=== PATIENT | female | born 1970 | race African-American/Black ===

== ENCOUNTER → 2018-03-06 | Outpatient (CLI) | payer BC, MEDICARE ==
--- NOTE | 2018-03-07 12:50 | RADIOLOGY REPORT (SQ) ---
EXAM DESCRIPTION: MRI HEAD COMBO COMPLETED DATE/TIME: 03/06/2018 11:59 am REASON FOR STUDY: MULTIPLE SCLEROSIS G35 MULTIPLE SCLEROSIS COMPARISON: None. TECHNIQUE: Multiplanar imaging includes noncontrasted T1, T2, FLAIR, diffusion with ADC map and post gadolinium contrast T1 sequences. Images stored on PACS. CONTRAST TYPE AND DOSE: 20 mL Multihance. RENAL FUNCTION: GFR > 60. LIMITATIONS: None. FINDINGS: ANATOMY: No anomalies. Normal vascular flow voids. Pituitary fossa normal. CSF SPACES: Normal in size and contour. No hemorrhage. CEREBRUM: Approximately 10- 12 foci of abnormal high signal on FLAIR sequence in the white matter, s everal lesions oriented perpendicular to the lateral ventricles. None of the lesions enhance. Large st lesion is about 1 cm left internal capsule. POSTERIOR FOSSA: No signal alteration. No hemorrhage. No edema, masses, or mass effect. Internal kristel tory canals, cerebellopontine angles, mastoids normal. No enhancing lesions. No abnormal enhancement post contrast. DIFFUSION IMAGING: Negative for acute or subacute infarction. ORBITS: No masses. Globes normal. PARANASAL SINUSES: No fluid levels. Mucosa normal. OTHER: No other significant finding. IMPRESSION: In active demyelinating disease consistent with clinical history of MS. No evidence of active demyelination. EVIDENCE OF ACUTE STROKE: NO. TECHNICAL DOCUMENTATION: JOB ID: [id number] [employer]- All Rights Reserved Reading location - IP/workstation name: [email or web address]
--- NOTE | 2018-03-07 14:41 | RADIOLOGY REPORT (SQ) ---
EXAM DESCRIPTION: MRI CERVICAL SPINE COMBO COMPLETED DATE/TIME: 03/06/2018 11:59 am REASON FOR STUDY: MULTIPLE SCLEROSIS G35 MULTIPLE SCLEROSIS COMPARISON: None. TECHNIQUE: Sagittal and Axial imaging includes T1, T2, STIR and gradient echo sequences. T1 post kg olinium sequences. CONTRAST TYPE AND DOSE: See separate report of the same date. RENAL FUNCTION: See separate report of the same date. LIMITATIONS: Patient motion. FINDINGS: ALIGNMENT: Normal. VERTEBRAE: Intact. BONE MARROW: Normal. No marrow replacement or reactive changes. DISCS: Normal. No significant abnormal signal or loss of height. HARDWARE: None in the spine. CORD AND BASE OF BRAIN: Linear increased T2 signal in the cord at the level of T 2 at the edge of the [id number]. SOFT TISSUES: No soft tissue masses. C1-C2: No significant spinal stenosis. C2-C3: No significant spinal stenosis or exit foraminal stenosis. C3-C4: No significant spinal stenosis or exit foraminal stenosis. C4-C5: No significant spinal stenosis or exit foraminal stenosis. C5-C6: No significant spinal stenosis or exit foraminal stenosis. C6-C7: No significant spinal stenosis or exit foraminal stenosis. C7-T1: No significant spinal stenosis or exit foraminal stenosis. UPPER THORACIC: Incompletely imaged. No significant spinal stenosis or exit foraminal stenosis. ENHANCEMENT: No abnormal enhancement. OTHER: No other significant finding. IMPRESSION: No evidence of active demyelinating disease. Suspected small syrinx at the T2 level whi is incompletely evaluated. COMMENT: None. TECHNICAL DOCUMENTATION: JOB ID: [id number] [facility]- All Rights Reserved Reading location - IP/workstation name: [email or web address]
== END ==
LOC: RAD 10:13
PROVIDERS: ATTEND Specialist
DX: G35 Multiple sclerosis (principal)
CPT/HCPCS: 82565; 70553; 72156; A9577

== ENCOUNTER 2018-04-23 01:23 | Emergency (ER) | payer OTHER, MEDICARE, BC ==
[2018-04-23] MEDS ORDERED: KETOROLAC TROMETHAMINE 60 MG/2 ML SDV IM ONE (03:52)
--- NOTE | 2018-04-23 04:00 | ER Document Report ---
HPI - HPI Onset: Yesterday Pain Level: 3 Notes: 47-year-old female who presents complaining of left hip pain after a mechanical fall yesterday afternoon at 3 PM while at work. Patient reports that she did not seek treatment at this time however the pain has gotten worse over the night and has now settled into a deep aching in the left hip area. Patient is able to bear weight and ambulate without difficulty. Patient reports past medical history of multiple sclerosis. 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 HEAD: Atraumatic, normocephalic. EYES: Pupils equal round and reactive to light, extraocular movements intact, conjunctiva are normal. ENT: Nares patent, oropharynx clear without exudates. Moist mucous membranes. NECK: Normal range of motion, supple without lymphadenopathy LUNGS: Breath sounds clear to auscultation bilaterally and equal. No wheezes rales or rhonchi. HEART: Regular rate and rhythm without murmurs ABDOMEN: Soft, nontender, nondistended abdomen. No guarding, no rebound. No masses appreciated. Female : deferred Musculoskeletal: Normal range of motion, no pitting or edema. No cyanosis. Full range of motion to bilateral hips. No pain with palpation to spine. NEUROLOGICAL: Cranial nerves grossly intact. Normal speech, normal gait. Normal sensory, motor exams PSYCH: Normal mood, normal affect. SKIN: Warm, Dry, normal turgor, no rashes or lesions noted. - INFECTION CONTROL TRAVEL OUTSIDE OF THE [place] IN LAST 30 DAYS: No Course - Re-evaluation Re-evalutation: 47-year-old female presents after mechanical fall yesterday. Patient complaining of left hip pain. Patient's examination is unremarkable and patient has full range of motion to her left hip. Will x-ray left hip and give an injection of IM Toradol. Left hip x-ray unremarkable. Will send patient home with prescription for Robaxin and ibuprofen. Patient will be instructed to alternate ice and heat. Patient instructed to follow-up with her primary care provider in 1 week if her pain persists, return to the emergency department if her pain worsens. - Vital Signs Vital signs: Temp Pulse Resp BP Pulse Ox 98.1 F 70 18 141/91 H 100 04/23/18 01:30 04/23/18 01:30 04/23/18 01:30 04/23/18 01:30 04/23/18 01:30 Discharge - Discharge Clinical Impression: Hip pain, left Fall Qualifiers: Encounter type: initial encounter Qualified Code(s): W19.XXXA - Unspecified fall, initial encounter Condition: Stable Disposition: HOME, SELF-CARE Additional Instructions: Contusion Your injury has resulted in a contusion -- a crushing of the deep tissues. No injury to important structures was detected during the physician's exam. Contusions vary in the amount of pain they cause, and in the length of time required for healing. Typically, the area will become bruised, and will remain painful to touch for two or three weeks. However, most patients are back to working and playing within a few days. After the initial period of rest and cold-packs, your symptoms (together with the doctor's recommendations) will determine how rapidly you can get back to full activity. Usually this means "do what feels okay, but don't do things that hurt." If re-examination was recommended, it's important to follow up as instructed. Call the doctor or return any time if pain increases, if swelling becomes severe, if you develop numbness or weakness in an injured extremity, or if any other alarming symptoms occur. Your x-ray does not show any fracture. Please use ice alternating with heat to aid with the discomfort. It is likely that you have a contusion or a deep bruise or possibly a mildly strained muscle. I am prescribing you some muscle relaxers and I would also like you to take the 800 mg ibuprofen I am prescribing. Please follow-up with your primary care provider in the next 5-7 days for a follow-up if you are still in pain. Prescriptions: Ibuprofen 800 mg PO TID PRN #30 tablet PRN Reason: For Pain Methocarbamol [Robaxin 500 mg Tablet] 500 mg PO QID PRN #30 tablet PRN Reason: Muscle Spasms Forms: Return to Work, Treatment of Relative/Child
--- NOTE | 2018-04-23 04:34 | RADIOLOGY REPORT (SQ) ---
EXAM DESCRIPTION: XR HIP 2 OR MORE VIEWS CLINICAL HISTORY: 47 years Female, fall, lt hip pain COMPARISON: None. Findings: Tubal ligation clips.. Bones, joints, and soft tissues of the XR HIP 2 OR MORE VIEWS appear otherwise intact. IMPRESSION: No acute findings.
[2018-04-23] MEDS ORDERED: METHOCARBAMOL 750 MG TABLET PO ONE (06:05)
[2018-04-23 06:33] VITALS: BP 124/93
== END 2018-04-23 06:10 | disposition home or self-care (01) ==
LOC: ER 01:23
DX: M25.552 Pain in left hip (principal); W19.XXXA Unspecified fall, initial encounter; Y99.0 Civilian activity done for income or pay; G35 Multiple sclerosis
CPT/HCPCS: 99283; 96372; 73502; J1885; J3490

== ENCOUNTER 2018-06-03 20:56 | Emergency (ER) | payer BC, MEDICARE ==
[2018-06-03] MEDS ORDERED: ASPIRIN 81 MG TABLET, CHEWABLE PO ONE (21:44)
--- NOTE | 2018-06-03 22:02 | RADIOLOGY REPORT (SQ) ---
EXAM DESCRIPTION: CHEST SINGLE VIEW COMPLETED DATE/TIME: 06/03/2018 9:53 pm REASON FOR STUDY: cp COMPARISON: None. EXAM PARAMETERS: NUMBER OF VIEWS: One view. TECHNIQUE: Single frontal radiographic view of the chest acquired. RADIATION DOSE: NA LIMITATIONS: None. FINDINGS: LUNGS AND PLEURA: No opacities, masses or pneumothorax. No pleural effusion. MEDIASTINUM AND HILAR STRUCTURES: No masses. Contour normal. HEART AND VASCULAR STRUCTURES: Heart normal in size. Normal vasculature. BONES: No acute findings. HARDWARE: None in the chest. OTHER: No other significant finding. IMPRESSION: NO ACUTE RADIOGRAPHIC FINDING IN THE CHEST. TECHNICAL DOCUMENTATION: JOB ID: [id number] 2010 [employer]- All Rights Reserved Reading location - IP/workstation name: [email or web address]
[2018-06-03 22:12] LABS: ABSOLUTE LYMPHOCYTES (AUTO) 0.1 10^3/uL (0.5-4.7); ABSOLUTE MONOCYTES (AUTO) 0.5 10^3/uL (0.1-1.4); ABSOLUTE NEUT (AUTO) 1.8 10^3/uL (1.7-8.2); BASOPHILS % (AUTO) 0.3 % (0-2); EOSINOPHILS % (AUTO) 0.6 % (0-6); HEMATOCRIT 41.4 % (36.0-47.0); HEMOGLOBIN 13.8 g/dL (12.0-15.5); LYMPHOCYTES % (AUTO) 5.9 % (13-45); MEAN CORPUSCULAR HGB CONC 33.4 g/dL (32.0-36.0); MEAN CORPUSCULAR VOLUME 87 fl (80-97); MONOCYTES % (AUTO) 18.8 % (3-13); PLATELET COUNT 173 10^3/uL (150-450); RED BLOOD COUNT 4.76 10^6/uL (3.72-5.28); RED CELL DISTRIBUTION WIDTH 15.1 % (11.5-14.0); SEGMENTED NEUTROPHILS % (AUTO) 74.4 % (42-78); TOTAL CELLS COUNTED % (AUTO) 100 %; WHITE BLOOD COUNT 2.4 10^3/uL (4.0-10.5)
[2018-06-03] MEDS ORDERED: ONDANSETRON 4 MG TAB.RAPDIS PO ONE (22:25)
[2018-06-03] MEDS ORDERED: DICYCLOMINE HCL 20 MG TABLET PO ONE (22:26)
[2018-06-03 22:33] LABS: ALANINE AMINOTRANSFERASE 34 U/L (9-52); ALBUMIN 3.7 g/dL (3.5-5.0); ALKALINE PHOSPHATASE 95 U/L (38-126); ANION GAP 9 (5-19); ASPARTATE AMINO TRANSFERASE 29 U/L (14-36); BILIRUBIN,DIRECT 0.4 mg/dL (0.0-0.4); BILIRUBIN,TOTAL 0.5 mg/dL (0.2-1.3); BLOOD UREA NITROGEN 13 mg/dL (7-20); CALCIUM 9.1 mg/dL (8.4-10.2); CARBON DIOXIDE 26 mmol/L (22-30); CHLORIDE 108 mmol/L (98-107); CREATINE KINASE 218 U/L (30-135); GLUCOSE 97 mg/dL (75-110); POTASSIUM 4.1 mmol/L (3.6-5.0); SODIUM 142.7 mmol/L (137-145); TOTAL PROTEIN 6.6 g/dL (6.3-8.2)
[2018-06-03 22:44] LABS: CREATINE KINASE MB 1.26 ng/mL (<4.55)
[2018-06-03 22:45] LABS: TROPONIN I < 0.012 ng/mL
[2018-06-04] MEDS ORDERED: ONDANSETRON ODT 4 MG TAB (6 TAB/ER DISP) PO PRN (00:40)
--- NOTE | 2018-06-04 00:42 | ER Document Report ---
ED General - General Chief Complaint: Chest Pain > 30 Stated Complaint: CHEST PAIN Time Seen by Provider: 06/03/18 22:14 TRAVEL OUTSIDE OF THE [place] IN LAST 30 DAYS: No - HPI Patient complains to provider of: Chest pain Notes: Patient coming in for evaluation of chest pain. Patient states chest pain left sided started earlier this evening. Patient states chest pain occurred shortly after had episode nausea vomiting. Patient states at this time feeling much better. Patient states no recent travel no recent trauma. No fevers chills diarrhea. Patient states sick contact with family member in the room with recent symptoms of nausea vomiting diarrhea. - Related Data Allergies/Adverse Reactions: No Known Allergies Allergy (Verified 06/03/18 20:56) Past Medical History - Social History Smoking Status: Never Smoker Frequency of alcohol use: Occasional Drug Abuse: None Family History: Reviewed & Not Pertinent Patient has suicidal ideation: No Patient has homicidal ideation: No - Past Medical History Cardiac Medical History: Reports: Hx Hypertension Renal/ Medical History: Denies: Hx Peritoneal Dialysis Past Surgical History: Reports: Hx Orthopedic Surgery - RT ankle Review of Systems - Review of Systems Constitutional: No symptoms reported EENT: No symptoms reported Cardiovascular: Chest pain Respiratory: No symptoms reported Gastrointestinal: Nausea, Vomiting Genitourinary: No symptoms reported Female Genitourinary: No symptoms reported Musculoskeletal: No symptoms reported Skin: No symptoms reported Hematologic/Lymphatic: No symptoms reported Neurological/Psychological: No symptoms reported -: Yes All other systems reviewed and negative Physical Exam - Vital signs Vitals: Temp Pulse Resp BP Pulse Ox 98.0 F 78 16 150/99 H 98 06/03/18 21:10 06/03/18 21:10 06/03/18 21:10 06/03/18 21:10 06/03/18 21:10 Interpretation: Normal - General General appearance: Appears well, Alert - HEENT Head: Normocephalic, Atraumatic Eyes: Normal Pupils: PERRL - Respiratory Respiratory status: No respiratory distress Chest status: Nontender Breath sounds: Normal Chest palpation: Normal - Cardiovascular Rhythm: Regular Heart sounds: Normal auscultation Murmur: No - Abdominal Inspection: Normal Distension: No distension Bowel sounds: Normal Tenderness: Nontender Organomegaly: No organomegaly - Back Back: Normal, Nontender - Extremities General upper extremity: Normal inspection, Nontender, Normal color, Normal ROM , Normal temperature General lower extremity: Normal inspection, Nontender, Normal color, Normal ROM , Normal temperature, Normal weight bearing. No: Ronnie's sign - Neurological Neuro grossly intact: Yes Cognition: Normal Orientation: AAOx4 [place] Coma Scale Eye Opening: Spontaneous [place] Coma Scale Verbal: Oriented [place] Coma Scale Motor: Obeys Commands [place] Coma Scale Total: 15 Speech: Normal Motor strength normal: LUE, RUE, LLE, RLE Sensory: Normal - Psychological Associated symptoms: Normal affect, Normal mood - Skin Skin Temperature: Warm Skin Moisture: Dry Skin Color: Normal Course - Re-evaluation Re-evalutation: 06/04/18 02:55 The patient has atypical chest pain as the patient's chest pain is not suggestive of pulmonary embolus, cardiac ischemia, aortic dissection, or other serious etiology. Given the extremely low risk of these diagnoses further testing and evaluation for these possibilities does not appear to be indicated at this time. The patient has been instructed to return if the symptoms worsen or change in any way. - Vital Signs Vital signs: Temp Pulse Resp BP Pulse Ox 98.6 F 78 12 106/67 100 06/04/18 00:01 06/03/18 21:10 06/04/18 00:01 06/04/18 00:01 06/04/18 00:01 - Laboratory Result Diagrams: 06/03/18 21:55 06/03/18 21:55 Laboratory results interpreted by me: 06/03/18 06/03/18 21:55 21:55 WBC 2.4 L RDW 15.1 H Lymphocytes % 5.9 L Monocytes % 18.8 H Absolute Lymphocytes 0.1 L Chloride 108 H Creatine Kinase 218 H Discharge - Discharge Clinical Impression: Chest pain, unspecified Qualifiers: Chest pain type: unspecified Qualified Code(s): R07.9 - Chest pain, unspecified Nausea & vomiting Qualifiers: Vomiting type: unspecified Vomiting Intractability: unspecified Qualified Code( s): R11.2 - Nausea with vomiting, unspecified Condition: Good Disposition: HOME, SELF-CARE Instructions: Chest Wall Pain ([facility]), Chest Pain of Unclear Cause ([facility]), Vomiting ([facility]) Additional Instructions: At this time your laboratory studies chest x-ray EKG does not show any concerning etiology for your chest pain. Highly recommend taking Tylenol Motrin for your pain. Take Zofran as provided for any nausea that she may have. I would recommend a bland diet for the next few days. Return to ER for any other concerns Prescriptions: Ondansetron [Zofran Odt] 4 mg PO Q6 PRN #30 tab.rapdis PRN Reason: For Nausea/Vomiting Forms: Return to Work
[2018-06-04 00:45] VITALS: BP 106/67
--- NOTE | 2018-06-04 07:17 | EKG REPORT ---
SEVERITY:- NORMAL ECG - SINUS RHYTHM : Confirmed by: Luis Eduardo Byrnes MD 04-Jun-2018 07:17:37
== END 2018-06-04 00:30 | disposition home or self-care (01) ==
LOC: ER 20:56
DX: R07.9 Chest pain, unspecified (principal); R11.2 Nausea with vomiting, unspecified; I10 Essential (primary) hypertension
CPT/HCPCS: 93005; 99285; 36415; 82553; 82550; 83690; 85025; 80053; 84484; 71045; 93010; J3490; S0119

== ENCOUNTER 2018-07-06 21:25 | Emergency (ER) | payer OTHER, MEDICARE, BC ==
--- NOTE | 2018-07-06 22:41 | RADIOLOGY REPORT (SQ) ---
EXAM DESCRIPTION: ANKLE LEFT COMPLETE COMPLETED DATE/TIME: 07/06/2018 10:09 pm REASON FOR STUDY: Pain s/p injury after tripping. COMPARISON: None. NUMBER OF VIEWS: Three views. TECHNIQUE: AP, lateral, and oblique radiographic images acquired of the left ankle. LIMITATIONS: None. FINDINGS: MINERALIZATION: Normal. BONES: Bimalleolar fracture with a nondisplaced transverse fracture of the medial malleolar and an ob lique nondisplaced fracture of the distal fibula. Cannot exclude a minimal nondisplaced posterior ma lleolar fracture. JOINTS: No effusions. SOFT TISSUES: No soft tissue swelling. No foreign body. OTHER: No other significant finding. IMPRESSION: Fractures. TECHNICAL DOCUMENTATION: JOB ID: [id number] [employer]- All Rights Reserved Reading location - IP/workstation name: [email or web address]
[2018-07-06] MEDS ORDERED: ACETAMINOPHEN 325 MG TABLET ONE (23:33)
[2018-07-06] MEDS ORDERED: OXYCODONE-ACETAMINOPHEN 5-325 MG TABLET PO ONE (23:42)
--- NOTE | 2018-07-06 23:42 | ER Document Report ---
ED Extremity Problem, Lower - General Chief Complaint: Ankle Injury Stated Complaint: FALL Time Seen by Provider: 07/06/18 23:41 TRAVEL OUTSIDE OF THE [place] IN LAST 30 DAYS: No - HPI Patient complains to provider of: Other - Pain in the left lower extremity, this 47-year-old female presented for pain in the ankle after slipping and falling while walking on the ground, she had immediate pain in the ankle thereafter was unable to ambulate. Denies any trauma elsewhere no loss of consciousness no injury to the head. She denies pain in the back does complain of swelling in the ankle has not taken anything since it started. Has had similar pain in the past and the other ankle as she did break it. - Related Data Allergies/Adverse Reactions: No Known Allergies Allergy (Verified 06/03/18 20:56) Past Medical History - General Information source: Patient - Social History Smoking Status: Never Smoker Cigarette use (# per day): No Chew tobacco use (# tins/day): No Family History: Reviewed & Not Pertinent - Past Medical History Cardiac Medical History: Reports: Hx Hypertension Renal/ Medical History: Denies: Hx Peritoneal Dialysis Past Surgical History: Reports: Hx Orthopedic Surgery - RT ankle Review of Systems - Review of Systems -: Yes All other systems reviewed and negative Physical Exam - Vital signs Interpretation: Normal - General General appearance: Appears well In distress: None - HEENT Head: Normocephalic Eyes: Normal Conjunctiva: Normal - Respiratory Respiratory status: No respiratory distress Chest status: Nontender Breath sounds: Normal - Cardiovascular Rhythm: Regular Heart sounds: Normal auscultation Murmur: No - Abdominal Inspection: Normal - Back Back: Normal - Extremities General upper extremity: Normal inspection General lower extremity: Normal inspection Ankle: Other - The left ankle is markedly swollen, there is swelling over the medial and lateral malleoli this - Neurological Neuro grossly intact: Yes Cognition: Normal Orientation: AAOx4 - Skin Skin Temperature: Warm Skin Moisture: Dry Course - Re-evaluation Re-evalutation: 07/07/18 05:03 47-year-old female presents for evaluation of pain and swelling in the left lower extremity after a fall. No other injuries identified. This patient has marked swelling over the medial and lateral malleolus, x-rays were obtained through triage, x-rays demonstrate that this patient has a bimalleolar fracture involving the tibia and fibula. Given this fracture as is will plan for splint application and follow-up in orthopedics clinic. 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 Splint applied, patient will be followed up in clinic referred to Dr. RICHARDSON for reevaluation and further evaluation with surgical management likely. She agrees at this time with current course, have given prescription for narcotic pain medication. Patient had difficulty ambulating, her and daughter agree to help her. Discharge - Discharge Clinical Impression: Broken leg, Fall Condition: Good Disposition: HOME, SELF-CARE Instructions: Fractured Ankle (Bimalleolar) ([facility]), Oral Narcotic Medication ( [facility]) Additional Instructions: You were seen today in the emergency department for broken ankle, he had a splint applied. He should follow-up with the orthopedic surgeon today. Do not put any weight on your leg. Use the pain medication only as needed. Prescriptions: Oxycodone HCl/Acetaminophen [Percocet 5-325 mg Tablet] 1 - 2 tab PO Q4H PRN #25 tablet PRN Reason: Forms: Special Work Note, Treatment of Relative/Child Referrals: SNEHAL HOLLY MD [ACTIVE STAFF] - Follow up as needed
[2018-07-07] MEDS ORDERED: HYDROCODONE/ACETAMINOPHEN 5-325 MG (6 TAB/ER DISP) PO PRN (01:01)
[2018-07-07 05:03] VITALS: BP 141/91
== END 2018-07-07 01:42 | disposition home or self-care (01) ==
LOC: ER 21:25
PROC: 2W3RX1Z Immobilization of Left Lower Leg using Splint (ICD-10-PCS; principal; 2018-07-06)
DX: S82.52XA Displaced fracture of medial malleolus of left tibia, initial encounter for closed fracture (principal); S82.62XA Displaced fracture of lateral malleolus of left fibula, initial encounter for closed fracture; M79.605 Pain in left leg; W01.0XXA Fall on same level from slipping, tripping and stumbling without subsequent striking against object, initial encounter; I10 Essential (primary) hypertension
CPT/HCPCS: 99283

== ENCOUNTER 2019-03-30 15:12 | Emergency (ER) | payer BC, MEDICARE ==
--- NOTE | 2019-03-30 16:49 | ER Document Report ---
ED Medical Screen (RME) - General Chief Complaint: Near Syncope Stated Complaint: DIZZINESS Time Seen by Provider: 03/30/19 16:40 Mode of Arrival: Ambulatory Information source: Patient TRAVEL OUTSIDE OF THE [place] IN LAST 30 DAYS: No - HPI Patient complains to provider of: DIZZINESS Notes: 03/30/19 16:46 Patient here with complaints of near syncope. The patient is a sitter here at the hospital. She has a history of multiple sclerosis. She states that she woke up this morning not feeling well. When she was walking into work, she felt like she was going to pass out. She had to lean up against a wall. This resolved. There was no actual syncope. No chest pain or shortness of breath. She states that she feels fine now. No fever. No nausea, vomiting, diarrhea. No unilateral numbness, tingling, weakness. No other complaints. Exam Nontoxic-appearing, no distress. Lungs clear throughout. Heart sounds normal. Non-focal neurological exam, cranial nerves II through XII grossly intact. Plan CBC, CMP, urine, Trope, EKG, chest x-ray. An initial examination was made on the patient as part of the triage process, and it was determined a more comprehensive evaluation was necessary. Initial labs were ordered and patient was transferred to another provider in the ED who assumed care and finished evaluation and plan. - Related Data Allergies/Adverse Reactions: No Known Allergies Allergy (Verified 06/03/18 20:56) Past Medical History - Past Medical History Cardiac Medical History: Reports: Hx Hypercholesterolemia, Hx Hypertension Renal/ Medical History: Denies: Hx Peritoneal Dialysis Past Surgical History: Reports: Hx Orthopedic Surgery - RT ankle Physical Exam - Vital signs Vitals: Temp Pulse Resp BP Pulse Ox 98.2 F 89 20 126/75 H 98 03/30/19 15:35 03/30/19 15:35 03/30/19 15:35 03/30/19 15:35 03/30/19 15:35 Course - Vital Signs Vital signs: Temp Pulse Resp BP Pulse Ox 98.2 F 89 20 126/75 H 98 03/30/19 15:35 03/30/19 15:35 03/30/19 15:35 03/30/19 15:35 03/30/19 15:35
--- NOTE | 2019-03-30 17:08 | RADIOLOGY REPORT (SQ) ---
EXAM DESCRIPTION: CHEST 2 VIEWS COMPLETED DATE/TIME: 03/30/2019 4:59 pm REASON FOR STUDY: DIZZINESS COMPARISON: 2018 TECHNIQUE: Frontal and lateral radiographic views of the chest acquired. NUMBER OF VIEWS: Two view. LIMITATIONS: None. FINDINGS: LUNGS AND PLEURA: No opacities, masses or pneumothorax. No pleural effusion. MEDIASTINUM AND HILAR STRUCTURES: No masses or contour abnormalities. HEART AND VASCULAR STRUCTURES: Heart normal size. No evidence for failure. BONES: No acute findings. HARDWARE: None in the chest. OTHER: No other significant finding. IMPRESSION: NO SIGNIFICANT RADIOGRAPHIC FINDING IN THE CHEST. TECHNICAL DOCUMENTATION: JOB ID: [id number] [employer]- All Rights Reserved Reading location - IP/workstation name: [email or web address]
[2019-03-30 17:26] LABS: ABSOLUTE LYMPHOCYTES (AUTO) 0.1 10^3/uL (0.5-4.7); ABSOLUTE MONOCYTES (AUTO) 0.4 10^3/uL (0.1-1.4); ABSOLUTE NEUT (AUTO) 1.8 10^3/uL (1.7-8.2); BASOPHILS % (AUTO) 0.5 % (0-2); EOSINOPHILS % (AUTO) 0.6 % (0-6); HEMATOCRIT 44.8 % (36.0-47.0); LYMPHOCYTES % (AUTO) 5.3 % (13-45); MEAN CORPUSCULAR HEMOGLOBIN 28.7 pg (27.0-33.4); MEAN CORPUSCULAR HGB CONC 33.4 g/dL (32.0-36.0); MEAN CORPUSCULAR VOLUME 86 fl (80-97); MONOCYTES % (AUTO) 17.4 % (3-13); PLATELET COUNT 205 10^3/uL (150-450); RED CELL DISTRIBUTION WIDTH 13.8 % (11.5-14.0); SEGMENTED NEUTROPHILS % (AUTO) 76.2 % (42-78); TOTAL CELLS COUNTED % (AUTO) 100 %; WHITE BLOOD COUNT 2.4 10^3/uL (4.0-10.5)
[2019-03-30 17:48] LABS: APPEARANCE,URINE CLOUDY; BILIRUBIN,URINE NEGATIVE (NEGATIVE); GLUCOSE, URINE NEGATIVE (NEGATIVE); KETONES,URINE NEGATIVE (NEGATIVE); LEUKOCYTE ESTERASE,URINE TRACE (NEGATIVE); NITRITE,URINE POSITIVE (NEGATIVE); PROTEIN,URINE NEGATIVE (NEGATIVE); URINE SPECIFIC GRAVITY 1.021
[2019-03-30 17:50] LABS: COLOR,URINE DARK YELLOW
[2019-03-30 18:00] LABS: ALANINE AMINOTRANSFERASE 55 U/L (9-52); ALBUMIN 4.1 g/dL (3.5-5.0); ALKALINE PHOSPHATASE 129 U/L (38-126); ANION GAP 10 (5-19); ASPARTATE AMINO TRANSFERASE 41 U/L (14-36); BILIRUBIN,DIRECT 0.3 mg/dL (0.0-0.4); BILIRUBIN,TOTAL 0.3 mg/dL (0.2-1.3); BLOOD UREA NITROGEN 12 mg/dL (7-20); CALCIUM 9.7 mg/dL (8.4-10.2); CARBON DIOXIDE 28 mmol/L (22-30); CHLORIDE 105 mmol/L (98-107); POTASSIUM 4.6 mmol/L (3.6-5.0); TOTAL PROTEIN 7.4 g/dL (6.3-8.2)
[2019-03-30 18:06] LABS: GLUCOSE 69 mg/dL (75-110)
--- NOTE | 2019-03-30 19:29 | ER Document Report ---
ED General - General Chief Complaint: Near Syncope Stated Complaint: DIZZINESS Time Seen by Provider: 03/30/19 16:40 Primary Care Provider: DA DUMONT FNP [Primary Care Provider] - Follow up in 3-5 days Mode of Arrival: Ambulatory Notes: Patient is a 48-year-old female that presents to the emergency department for chief complaint of lightheadedness. Patient states that she was walking into work, and started feeling lightheaded, and almost passed out, but did not lose consciousness. She said she is feeling much better now, she denies having any associated chest pain, shortness of breath, headaches, nausea, vomiting. She denies prior history of having syncopal episodes, but she states that she thinks she has not eaten as much as she usually does in the day, she does have MS, is worried maybe she is having a flare, but she denies having any spasticity, numbness, tingling or weakness. Past Medical History: Hypertension, multiple sclerosis Past Surgical History: Ankle surgery Social History: Denies tobacco, alcohol or drug use. Family History: Reviewed and noncontributory for presenting illness Allergies: Reviewed, see documented allergy list. REVIEW OF SYSTEMS: Other than noted above, the 12 point review of systems was reviewed with the patient and were negative, all pertinent findings are included in the HPI. PHYSICAL EXAMINATION: Vital signs reviewed, nursing noted reviewed. GENERAL: Well-appearing, well-nourished and in no acute distress. HEAD: Atraumatic, normocephalic. EYES: Eyes appear normal, extraocular movements intact, sclera anicteric, c onjunctiva are normal. ENT: nares patent, oropharynx clear without exudates. Moist mucous membranes. NECK: Normal range of motion, supple without lymphadenopathy LUNGS: Breath sounds clear to auscultation bilaterally and equal. No wheezes rales or rhonchi. HEART: Regular rate and rhythm without murmurs ABDOMEN: Soft, nontender, normoactive bowel sounds. No rebound, guarding, or rigidity. No masses appreciated. EXTREMITIES: Nontender, good range of motion, no pitting or edema. NEUROLOGICAL: No focal neurological deficits. Moves all extremities spontaneously Motor and sensory grossly intact on exam. PSYCH: Normal mood, normal affect. SKIN: Warm, Dry, normal turgor, no rashes or lesions noted on exposed skin TRAVEL OUTSIDE OF THE [place] IN LAST 30 DAYS: No - Related Data Allergies/Adverse Reactions: No Known Allergies Allergy (Verified 06/03/18 20:56) Past Medical History - General Information source: Patient - Social History Smoking Status: Never Smoker Frequency of alcohol use: None Drug Abuse: None Family History: Reviewed & Not Pertinent Patient has suicidal ideation: No Patient has homicidal ideation: No - Past Medical History Cardiac Medical History: Reports: Hx Hypercholesterolemia, Hx Hypertension Renal/ Medical History: Denies: Hx Peritoneal Dialysis Past Surgical History: Reports: Hx Orthopedic Surgery - RT ankle Physical Exam - Vital signs Vitals: Temp Pulse Resp BP Pulse Ox 98.2 F 89 20 126/75 H 98 03/30/19 15:35 03/30/19 15:35 03/30/19 15:35 03/30/19 15:35 03/30/19 15:35 Course - Re-evaluation Re-evalutation: Patient seen and examined vital signs reviewed. Laboratory data and/or imaging were ordered as appropriate for the patient's presenting symptoms and complaint, with consideration of any critical or life threatening conditions that may be associated with their obtained history and exam as noted above. Patient was treated with first dose of po Keflex Results were reviewed when available and demonstrated UA concerning for UTI, she was noted to have mild leukopenia and this appears to be chronic. Believe the patient's cause of her syncope is likely mild dehydration, she is been having some urinary frequency, and likely caused from urinary tract infection as she is nitrite positive. The patient was re-evaluated and was stable Evaluation was most consistent with near syncope, uti, given rx for keflex and advised hydrating herself adequately at home Results were discussed with the patient at this point, after careful consideration I feel that that patient can be discharged from the emergency department, the patient was educated treatments and reasons to return to the em ergency department based on their presumed diagnosis as noted above, they were advised to followup with a primary care physician in 2-3 days. Patient was agreeable to plan of care. *Note is created using voice recognition software and may contain spelling, syntax or grammatical errors. Laboratory 03/30/19 03/30/19 03/30/19 17:13 17:13 17:13 WBC 2.4 L RBC 5.20 Hgb 15.0 Hct 44.8 MCV 86 MCH 28.7 MCHC 33.4 RDW 13.8 Plt Count 205 Seg Neutrophils % 76.2 Lymphocytes % 5.3 L Monocytes % 17.4 H Eosinophils % 0.6 Basophils % 0.5 Absolute Neutrophils 1.8 Absolute Lymphocytes 0.1 L Absolute Monocytes 0.4 Absolute Eosinophils 0.0 Absolute Basophils 0.0 Sodium 143.0 Potassium 4.6 Chloride 105 Carbon Dioxide 28 Anion Gap 10 BUN 12 Creatinine 0.62 Est GFR ( Amer) > 60 Est GFR (Non-Af Amer) > 60 Glucose 69 L Calcium 9.7 Total Bilirubin 0.3 Direct Bilirubin 0.3 Neonat Total Bilirubin Not Reportable Neonat Direct Bilirubin Not Reportable Neonat Indirect Bili Not Reportable AST 41 H ALT 55 H Alkaline Phosphatase 129 H Troponin I < 0.012 Total Protein 7.4 Albumin 4.1 Urine Color Urine Appearance Urine pH Ur Specific [place] Urine Protein Urine Glucose (UA) Urine Ketones Urine Blood Urine Nitrite Urine Bilirubin Urine Urobilinogen Ur Leukocyte Esterase Urine WBC (Auto) Urine RBC (Auto) Urine Bacteria (Auto) Squamous Epi Cells Auto Urine Mucus (Auto) Urine Ascorbic Acid Urine HCG, Qual Monotest 03/30/19 03/30/19 17:13 17:13 WBC RBC Hgb Hct MCV MCH MCHC RDW Plt Count Seg Neutrophils % Lymphocytes % Monocytes % Eosinophils % Basophils % Absolute Neutrophils Absolute Lymphocytes Absolute Monocytes Absolute Eosinophils Absolute Basophils Sodium Potassium Chloride Carbon Dioxide Anion Gap BUN Creatinine Est GFR ( Amer) Est GFR (Non-Af Amer) Glucose Calcium Total Bilirubin Direct Bilirubin Neonat Total Bilirubin Neonat Direct Bilirubin Neonat Indirect Bili AST ALT Alkaline Phosphatase Troponin I Total Protein Albumin Urine Color DARK YELLOW Urine Appearance CLOUDY Urine pH 5.0 Ur Specific [place] 1.021 Urine Protein NEGATIVE Urine Glucose (UA) NEGATIVE Urine Ketones NEGATIVE Urine Blood NEGATIVE Urine Nitrite POSITIVE H Urine Bilirubin NEGATIVE Urine Urobilinogen 2.0 H Ur Leukocyte Esterase TRACE H Urine WBC (Auto) 12 Urine RBC (Auto) 1 Urine Bacteria (Auto) 1+ Squamous Epi Cells Auto 1 Urine Mucus (Auto) MANY Urine Ascorbic Acid NEGATIVE Urine HCG, Qual NEGATIVE Monotest NEGATIVE Chest X-Ray 03/30/19 16:45 IMPRESSION: NO SIGNIFICANT RADIOGRAPHIC FINDING IN THE CHEST. - Vital Signs Vital signs: Temp Pulse Resp BP Pulse Ox 98.3 F 89 21 H 123/82 100 03/30/19 20:30 03/30/19 15:35 03/30/19 20:02 03/30/19 20:02 03/30/19 20:02 - Laboratory Result Diagrams: 03/30/19 17:13 03/30/19 17:13 Laboratory results interpreted by me: 03/30/19 03/30/19 03/30/19 17:13 17:13 17:13 WBC 2.4 L Lymphocytes % 5.3 L Monocytes % 17.4 H Absolute Lymphocytes 0.1 L Glucose 69 L AST 41 H ALT 55 H Alkaline Phosphatase 129 H Urine Nitrite POSITIVE H Urine Urobilinogen 2.0 H Ur Leukocyte Esterase TRACE H Discharge - Discharge Clinical Impression: Near syncope UTI (urinary tract infection) Qualifiers: Urinary tract infection type: site unspecified Hematuria presence: without hematuria Qualified Code(s): N39.0 - Urinary tract infection, site not specified Condition: Stable Disposition: HOME, SELF-CARE Instructions: Urinary Tract Infection ([facility]) Prescriptions: RX: Cephalexin Monohydrate [Keflex 500 mg Capsule] 500 mg PO BID 5 Days #10 capsule Fluconazole [Diflucan] 150 mg PO ONCE PRN #1 tablet PRN Reason: yeast infection Forms: Return to Work Referrals: DA DUMONT FNP [Primary Care Provider] - Follow up in 3-5 days
[2019-03-30 20:25] VITALS: BP 123/82
[2019-03-30] MEDS ORDERED: CEPHALEXIN 500 MG CAPSULE PO ONE (20:27)
--- NOTE | 2019-03-30 23:13 | EKG REPORT ---
SEVERITY:- NORMAL ECG - SINUS RHYTHM : Confirmed by: Iliana Hair 30-Mar-2019 23:11:38
== END 2019-03-30 20:31 | disposition home or self-care (01) ==
LOC: ER 15:12
DX: N39.0 Urinary tract infection, site not specified (principal); R42 Dizziness and giddiness; I10 Essential (primary) hypertension; G35 Multiple sclerosis
CPT/HCPCS: 93005; 99284; 36415; 85025; 81025; 86308; 80053; 81001; 84484; 71046; 93010; A9270

== ENCOUNTER 2019-04-01 06:07 | Emergency (ER) | payer MEDICARE ==
[2019-04-01] MEDS ORDERED: NORMAL SALINE 1000 ML 1,000 ML IV ONE (06:20)
[2019-04-01] MEDS ORDERED: CEFTRIAXONE 1 GM/D5W RTU 1 GM/50 ML RTUPB IV ONE (06:20)
--- NOTE | 2019-04-01 06:49 | ER Document Report ---
ED General - General Stated Complaint: DIZZINESS Time Seen by Provider: 04/01/19 06:19 Primary Care Provider: DA DUMONT FNP [Primary Care Provider] - Follow up as needed Mode of Arrival: Medic Information source: Patient, Emergency Med Personnel, [facility] Records Notes: 54-year-old female with MS, trigeminal neuralgia, hypertension, hyperlipidemia presents with complaint of dizziness that started 2 days prior to arrival. Patient was seen 2 days ago and diagnosed with a urinary tract infection. She states shortly after that she developed the sensation of the room spinning. She states that she has had associated nausea, headache. Patient states that she has been unable to start her prescribed antibiotic or take any of her home medications due to the nausea and dizziness. Patient denies ear ringing, fever, ear pain, sore throat, chest pain, shortness of breath, abdominal pain, back pain, weakness, slurred speech, difficulty with ambulation. Patient states dizziness is worse with movement and relieved with sitting still. She denies prior similar symptoms. TRAVEL OUTSIDE OF THE [place] IN LAST 30 DAYS: No - HPI Onset: Just prior to arrival Onset/Duration: Gradual, Persistent Quality of pain: Achy Severity: Mild Associated symptoms: Headache, Nausea, Vomiting. denies: Body/muscle aches, Chest pain, Shortness of breath, Weakness Exacerbated by: Movement, Walking Relieved by: Remaining still Similar symptoms previously: No Recently seen / treated by doctor: No - Related Data Allergies/Adverse Reactions: No Known Allergies Allergy (Verified 06/03/18 20:56) Past Medical History - General Information source: Patient, [facility] Records - Social History Smoking Status: Never Smoker Frequency of alcohol use: None Drug Abuse: None Lives with: Family Family History: Reviewed & Not Pertinent Patient has suicidal ideation: No Patient has homicidal ideation: No - Past Medical History Cardiac Medical History: Reports: Hx Hypercholesterolemia, Hx Hypertension Renal/ Medical History: Denies: Hx Peritoneal Dialysis Past Surgical History: Reports: Hx Orthopedic Surgery - RT ankle Review of Systems - Review of Systems Notes: REVIEW OF SYSTEMS: CONSTITUTIONAL : Denies fever, chills, or sweats. Denies recent illness. Denies weight loss, recent hospitalizations. EENT: Denies visual changes, eye pain. Denies sore throat, oral lesions, difficulty swallowing. CARDIOVASCULAR: Denies chest pain. Denies palpitations. Denies lower extremity edema. RESPIRATORY: Denies cough. Denies shortness of breath, wheezing. GASTROINTESTINAL: Denies abdominal pain or distention. Denies diarrhea. Denies blood in vomitus, stools, or per rectum. Denies black, tarry stools. Denies constipation. GENITOURINARY: Denies difficulty urinating, painful urination, frequency, blood in urine, or vaginal discharge. MUSCULOSKELETAL: Denies back or neck pain or stiffness. Denies joint pain or swelling. SKIN: Denies rash, lesions or sores. HEMATOLOGIC : Denies easy bruising or bleeding. LYMPHATIC: Denies swollen glands. NEUROLOGICAL: Denies confusion or altered mental status. Denies loss of consciousness. Denies lightheadedness. Denies weakness or paralysis. Denies problems difficulty with ambulation, slurred speech. Denies sensory lo ss, numbness, or tingling. Denies seizures. PSYCHIATRIC: Denies anxiety or stress. Denies depression, suicidal ideation, or homicidal ideation. Denies visual or auditory hallucinations. Physical Exam - Vital signs Vitals: Pulse Ox 100 04/01/19 06:26 - Notes Notes: PHYSICAL EXAMINATION: GENERAL: Well-appearing, well-nourished and in no acute distress. HEAD: Atraumatic, normocephalic. EYES: Pupils equal round and reactive to light, extraocular movements intact, conjunctiva are normal. Left-sided horizontal nystagmus ENT: Nares patent, oropharynx clear without exudates. Moist mucous membranes. NECK: Normal range of motion, supple without lymphadenopathy LUNGS: Breath sounds clear to auscultation bilaterally and equal. No wheezes rales or rhonchi. HEART: Regular rate and rhythm without murmurs ABDOMEN: Soft, nontender, nondistended abdomen. No guarding, no rebound. No masses appreciated. Female : deferred Musculoskeletal: Normal range of motion, no pitting or edema. No cyanosis. NEUROLOGICAL: Cranial nerves grossly intact. Normal speech, normal gait. Normal sensory, motor exams PSYCH: Normal mood, normal affect. SKIN: Warm, Dry, normal turgor, no rashes or lesions noted. Course - Re-evaluation Re-evalutation: Laboratory 04/01/19 04/01/19 04/01/19 07:00 07:38 07:38 WBC 2.0 L RBC 4.76 Hgb 13.5 Hct 41.2 MCV 87 MCH 28.3 MCHC 32.6 RDW 14.2 H Plt Count 181 Seg Neutrophils % 77.0 Lymphocytes % 4.8 L Monocytes % 16.6 H Eosinophils % 0.8 Basophils % 0.8 Absolute Neutrophils 1.6 L Absolute Lymphocytes 0.1 L Absolute Monocytes 0.3 Absolute Eosinophils 0.0 Absolute Basophils 0.0 Platelet Comment ADEQUATE Poikilocytosis SLIGHT Anisocytosis SLIGHT Ovalocytes SLIGHT Sodium 139.4 Potassium 3.9 Chloride 105 Carbon Dioxide 27 Anion Gap 7 BUN 12 Creatinine 0.58 Est GFR ( Amer) > 60 Est GFR (Non-Af Amer) > 60 Glucose 115 H Calcium 9.0 Urine Color YELLOW Urine Appearance SLIGHTLY-CLOUDY Urine pH 6.0 Ur Specific [place] 1.023 Urine Protein NEGATIVE Urine Glucose (UA) NEGATIVE Urine Ketones NEGATIVE Urine Blood NEGATIVE Urine Nitrite NEGATIVE Urine Bilirubin NEGATIVE Urine Urobilinogen 2.0 H Ur Leukocyte Esterase TRACE H Urine WBC (Auto) 1 Urine RBC (Auto) 0 Urine Bacteria (Auto) TRACE Squamous Epi Cells Auto 2 Amorphous Sediment Auto TRACE Urine Mucus (Auto) RARE Urine Ascorbic Acid NEGATIVE 04/01/19 09:33 Presentation of vertigo that appears most consistent with a benign peripheral vertigo. Patient has no abnormal findings on exam. Normal cerebellar testing, steady even gait. Able to walk on heels and toes. Normal proprioception. Patient is not an elevated risk for a cerebellar infarction given age, absence of significant risk factors. Patient did have improvement of symptoms here in the emergency department with meclizine. Suspect likely acute vestibular neuritis. I do not believe neurologic imaging is indicated at this time based on physical examination and clinical history. Patient will be discharged with recommendations to return should their symptoms worsen or they develop new concerning symptoms. 04/01/19 13:32 - Vital Signs Vital signs: Temp Pulse Resp BP Pulse Ox 98 F 17 135/92 H 100 04/01/19 09:38 04/01/19 09:02 04/01/19 09:02 04/01/19 09:02 - Laboratory Result Diagrams: 04/01/19 07:38 04/01/19 07:38 Laboratory results interpreted by me: 04/01/19 04/01/19 04/01/19 07:00 07:38 07:38 WBC 2.0 L RDW 14.2 H Lymphocytes % 4.8 L Monocytes % 16.6 H Absolute Neutrophils 1.6 L Absolute Lymphocytes 0.1 L Glucose 115 H Urine Urobilinogen 2.0 H Ur Leukocyte Esterase TRACE H - Diagnostic Test Radiology reviewed: Image reviewed, Reports reviewed Discharge - Discharge Clinical Impression: Vertigo, Nausea Condition: Good Disposition: HOME, SELF-CARE Instructions: Antinausea Medication ([facility]), Meclizine ([facility]), Vertigo ([facility]) Additional Instructions: Follow up with your [id number] hours for further care or return to the ED IMMEDIATELY if symptoms worsen or you have any concerns. If you cannot afford to follow up with your primary care physician a list of low cost clinics have been provided at the end of your discharge papers as well. Most prescribed medications have multiple side effects. The safest thing to do is when filling your prescription speak to your pharmacist regarding possible interactions with your normal home medications and over the counter medications such as Ibuprofen, Tylenol, Benadryl. If you experience any symptoms that cause you discomfort or concern you should discontinue the medication immediately and return to the emergency room or call your primary care physician. Prescriptions: Meclizine HCl [Antivert 25 mg Tablet] 25 mg PO TID PRN #21 tablet PRN Reason: Ondansetron [Zofran Odt 4 mg Tablet] 1 - 2 tab PO Q4H PRN #15 tab.rapdis PRN Reason: For Nausea/Vomiting Forms: Elevated Blood Pressure Referrals: DA DUMONT FNP [Primary Care Provider] - Follow up as needed
[2019-04-01] MEDS ORDERED: MECLIZINE HCL 25 MG TABLET PO ONE (06:50)
[2019-04-01] MEDS ORDERED: METOCLOPRAMIDE HCL INJ/PF 10 MG/2 ML SDV IV ONE (06:50)
[2019-04-01] MEDS ORDERED: MECLIZINE HCL 12.5 MG TABLET PO ONE ×2 (06:50)
[2019-04-01] MEDS ORDERED: DIPHENHYDRAMINE HCL 50 MG/ML VIAL IV ONE (06:50)
[2019-04-01] MEDS ORDERED: DIAZEPAM INJ 10 MG/2 ML DISP.SYRIN IV ONE (06:50)
[2019-04-01 07:50] LABS: AMORPHOUS SEDIMENT,URINE TRACE /HPF; APPEARANCE,URINE SLIGHTLY-CLOUDY; BILIRUBIN,URINE NEGATIVE (NEGATIVE); COLOR,URINE YELLOW; GLUCOSE, URINE NEGATIVE (NEGATIVE); KETONES,URINE NEGATIVE (NEGATIVE); LEUKOCYTE ESTERASE,URINE TRACE (NEGATIVE); NITRITE,URINE NEGATIVE (NEGATIVE); PROTEIN,URINE NEGATIVE (NEGATIVE); URINE SPECIFIC GRAVITY 1.023
[2019-04-01 08:02] LABS: ABSOLUTE LYMPHOCYTES (AUTO) 0.1 10^3/uL (0.5-4.7); ABSOLUTE MONOCYTES (AUTO) 0.3 10^3/uL (0.1-1.4); ABSOLUTE NEUT (AUTO) 1.6 10^3/uL (1.7-8.2); BASOPHILS % (AUTO) 0.8 % (0-2); EOSINOPHILS % (AUTO) 0.8 % (0-6); HEMATOCRIT 41.2 % (36.0-47.0); HEMOGLOBIN 13.5 g/dL (12.0-15.5); LYMPHOCYTES % (AUTO) 4.8 % (13-45); MEAN CORPUSCULAR HEMOGLOBIN 28.3 pg (27.0-33.4); MEAN CORPUSCULAR HGB CONC 32.6 g/dL (32.0-36.0); MEAN CORPUSCULAR VOLUME 87 fl (80-97); MONOCYTES % (AUTO) 16.6 % (3-13); PLATELET COUNT 181 10^3/uL (150-450); RED BLOOD COUNT 4.76 10^6/uL (3.72-5.28); RED CELL DISTRIBUTION WIDTH 14.2 % (11.5-14.0); TOTAL CELLS COUNTED % (AUTO) 100 %
[2019-04-01 08:14] LABS: ANION GAP 7 (5-19); BLOOD UREA NITROGEN 12 mg/dL (7-20); CARBON DIOXIDE 27 mmol/L (22-30); CHLORIDE 105 mmol/L (98-107); GLUCOSE 115 mg/dL (75-110); POTASSIUM 3.9 mmol/L (3.6-5.0); SODIUM 139.4 mmol/L (137-145)
[2019-04-01 08:20] LABS: ANISOCYTOSIS SLIGHT; OVALOCYTES SLIGHT; PLATELET COMMENT ADEQUATE; POIKILOCYTOSIS SLIGHT
[2019-04-01 09:25] VITALS: BP 135/92
== END 2019-04-01 09:38 | disposition home or self-care (01) ==
LOC: ER 06:07
DX: R42 Dizziness and giddiness (principal); R11.0 Nausea; E78.00 Pure hypercholesterolemia, unspecified; I10 Essential (primary) hypertension
CPT/HCPCS: 99284; 96361; 96375; 96365; 36415; 87086; 85025; 80048; 81001; J3360; J1200; A9270; J2765; J7030; J0696

== ENCOUNTER 2019-09-24 14:52 | Observation (INO) | payer MEDICARE ==
--- NOTE | 2019-09-24 15:15 | ER Document Report ---
ED General - General Chief Complaint: Chest Pain Stated Complaint: CHEST PAIN Time Seen by Provider: 09/24/19 15:14 Primary Care Provider: DA DUMONT FNP [Primary Care Provider] - Follow up as needed TRAVEL OUTSIDE OF THE [place] IN LAST 30 DAYS: No - HPI Notes: Patient is a 48 yo female that presents to the emergency department for chief complaint of chest pain and dizziness. Patient has complained of dizziness that she describes as a room spinning sensation that occurs when she moves her head. She states her symptom is new and has occurred twice today. She states earlier the symptoms occurred and lasted for a few minutes before resolving and then returned this afternoon. Patient also states after the second episode of dizziness she started to have a chest pain. She describes it as a left-sided heaviness that radiates into her left neck. She reported associated nausea and diaphoresis. She denied any palpitations, chest pain or syncopal episodes. Patient states her chest pain lasted for 30 to 45 minutes and has since completely resolved. Currently she only states feeling dizzy with position changes. She does report some sinus congestion recently but denies any illness fevers or chills. Past Medical History: MS, hypertension, hyperlipidemia Past Surgical History: Reviewed in chart Social History: Denies drug alcohol and tobacco use Family History: Reviewed and noncontributory for presenting illness Allergies: Reviewed, see documented allergy list. REVIEW OF SYSTEMS: CONSTITUTIONAL : No fever No chills No diaphoresis No recent illness EENT: No vision changes No congestion No sore throat CARDIOVASCULAR: chest pain No palpitations RESPIRATORY: No shortness of breath No cough No difficulty breathing GASTROINTESTINAL: No abdominal pain nausea No vomiting No diarrhea GENITOURINARY: No dysuria No hematuria No difficulty urinating MUSCULOSKELETAL: No back pain No leg pain No arm pain SKIN: No rashes No lesions LYMPHATIC: No swollen, enlarged glands. NEUROLOGICAL: No lightheadedness No headache No weakness No paresthesias Dizziness PSYCHIATRIC: No anxiety No depression PHYSICAL EXAMINATION: Vital signs reviewed, nursing noted reviewed. GENERAL: Well-appearing, well-nourished and in no acute distress. HEAD: Atraumatic, normocephalic. EYES: fatigable horizontal nystagmus to the right, extraocular movements intact, sclera anicteric, conjunctiva are normal. ENT: nares patent, oropharynx clear without exudates. Moist mucous membranes. NECK: Normal range of motion, supple without lymphadenopathy LUNGS: Breath sounds clear to auscultation bilaterally and equal. No wheezes rales or rhonchi. HEART: Regular rate and rhythm without murmurs ABDOMEN: Soft, nontender, normoactive bowel sounds. No rebound, guarding, or rigidity. No masses appreciated. EXTREMITIES: Nontender, good range of motion, no pitting or edema. NEUROLOGICAL: No focal neurological deficits. Moves all extremities spontaneously Motor and sensory grossly intact on exam. PSYCH: Normal mood, normal affect. SKIN: Warm, Dry, normal turgor, no rashes or lesions noted on exposed skin - Related Data Allergies/Adverse Reactions: No Known Allergies Allergy (Verified 06/03/18 20:56) Past Medical History - Social History Smoking Status: Never Smoker Family History: Reviewed & Not Pertinent - Past Medical History Cardiac Medical History: Reports: Hx Hypercholesterolemia, Hx Hypertension Renal/ Medical History: Denies: Hx Peritoneal Dialysis Past Surgical History: Reports: Hx Orthopedic Surgery - RT ankle Physical Exam - Vital signs Vitals: Pulse Ox 99 09/24/19 14:53 Course - Re-evaluation Re-evalutation: 09/24/19 16:22 Vitals reviewed. Nursing notes reviewed. Patient is chest pain-free at presentation to the ER. She has received aspirin. Patient's EKG shows no acute STEMI. Her initial troponin is negative. She does have a heart score of 4. Patient's lab work today also shows a leukopenia which is chronic and unchanged on chart review. She has no acute pneumonia, pneumomediastinum, pneumothorax or other cardiopulmonary process on chest x-ray. Patient's complaint of dizziness is reproduced with position changes and she does have sinus congestion. Symptoms most consistent with BPPV. Patient had significant symptomatic improvement after receiving Valium. I do not clinically suspect a central cause of her vertiginous symptoms given that they are intermittent and improving with medications as well as her current sinus congestion. Patient will be admitted to the hospital for further cardiac evaluation. Care discussed with Pee Slaughter NP who accepts admission. Patient stable at time of admission Laboratory 09/24/19 09/24/19 09/24/19 15:09 15:09 15:09 WBC 2.4 L RBC 4.88 Hgb 14.0 Hct 42.5 MCV 87 MCH 28.7 MCHC 32.9 RDW 13.3 Plt Count 167 Lymph % (Auto) Not Reportable [place] % (Auto) Not Reportable Eos % (Auto) Not Reportable Baso % (Auto) Not Reportable Absolute Neuts (auto) Not Reportable Absolute Lymphs (auto) Not Reportable Absolute Monos (auto) Not Reportable Absolute Eos (auto) Not Reportable Absolute Basos (auto) Not Reportable Total Counted 100 Seg Neutrophils % Not Reportable Seg Neuts % (Manual) 83 H Lymphocytes % (Manual) 4 L Monocytes % (Manual) 12 Eosinophils % (Manual) 1 Basophils % (Manual) 0 Abs Neuts (Manual) 2.0 Abs Lymphs (Manual) 0.1 L Abs Monocytes (Manual) 0.3 Absolute Eos (Manual) 0.0 Abs Basophils (Manual) 0.0 Platelet Comment ADEQUATE Sodium 142.1 Potassium 4.1 Chloride 105 Carbon Dioxide 31 H Anion Gap 6 BUN 11 Creatinine 0.67 Est GFR ( Amer) > 60 Est GFR (MDRD) Non-Af > 60 Glucose 120 H Calcium 9.3 Total Bilirubin 0.3 Direct Bilirubin 0.1 Neonat Total Bilirubin Not Reportable Neonat Direct Bilirubin Not Reportable Neonat Indirect Bili Not Reportable AST 44 H ALT 53 Alkaline Phosphatase 146 H Creatine Kinase 117 CK-MB (CK-2) 1.13 Troponin I < 0.012 Total Protein 6.9 Albumin 3.9 Chest X-Ray 09/24/19 14:54 IMPRESSION: Low volume AP portable examination without acute abnormality of the lungs. No focal airspace opacity. - Vital Signs Vital signs: Temp Pulse Resp BP Pulse Ox 97.8 F 15 125/89 H 100 09/24/19 15:00 09/24/19 15:01 09/24/19 15:00 09/24/19 15:01 - Laboratory Result Diagrams: 09/24/19 15:09 09/24/19 15:09 Laboratory results interpreted by me: 09/24/19 09/24/19 15:09 15:09 WBC 2.4 L Seg Neuts % (Manual) 83 H Lymphocytes % (Manual) 4 L Abs Lymphs (Manual) 0.1 L Carbon Dioxide 31 H Glucose 120 H AST 44 H Alkaline Phosphatase 146 H - EKG Interpretation by Me Additional EKG results interpreted by me: 09/24/19 16:12 interpreted by myself: 1457: NSR, rate 73, normal axis, no STEMI Discharge - Discharge Clinical Impression: BPPV (benign paroxysmal positional vertigo) Qualifiers: Laterality: right Qualified Code(s): H81.11 - Benign paroxysmal vertigo, right ear Chest pain Qualifiers: Chest pain type: other chest pain Qualified Code(s): R07.89 - Other chest pain; R07.8 - Other chest pain Leukopenia Qualifiers: Leukopenia type: other Qualified Code(s): D72.818 - Other decreased white blood cell count Condition: Stable Disposition: ADMITTED OBSERVATION Admitting Provider: Pee Slaughter NP Unit Admitted: Telemetry Referrals: DA DUMONT FNP [Primary Care Provider] - Follow up as needed
[2019-09-24] MEDS ORDERED: DIAZEPAM 5 MG TABLET PO ONE (15:20)
[2019-09-24] MEDS ORDERED: NORMAL SALINE 1000 ML 1,000 ML IV ONE (15:26)
[2019-09-24 15:33] LABS: HEMATOCRIT 42.5 % (36.0-47.0); MEAN CORPUSCULAR HEMOGLOBIN 28.7 pg (27.0-33.4); MEAN CORPUSCULAR HGB CONC 32.9 g/dL (32.0-36.0); MEAN CORPUSCULAR VOLUME 87 fl (80-97); PLATELET COUNT 167 10^3/uL (150-450); RED BLOOD COUNT 4.88 10^6/uL (3.72-5.28); RED CELL DISTRIBUTION WIDTH 13.3 % (11.5-14.0); WHITE BLOOD COUNT 2.4 10^3/uL (4.0-10.5)
--- NOTE | 2019-09-24 15:43 | RADIOLOGY REPORT (SQ) ---
EXAM DESCRIPTION: CHEST SINGLE VIEW COMPLETED DATE/TIME: 09/24/2019 3:30 pm REASON FOR STUDY: chest pain COMPARISON: 03/30/2019 EXAM PARAMETERS: NUMBER OF VIEWS: One view. TECHNIQUE: Single frontal radiographic view of the chest acquired. RADIATION DOSE: NA LIMITATIONS: None. FINDINGS: Low volume AP portable examination without acute abnormality of the lungs. No focal airsp todd opacity. IMPRESSION: Low volume AP portable examination without acute abnormality of the lungs. No focal airs pace opacity. TECHNICAL DOCUMENTATION: JOB ID: [id number] H5- All Rights Reserved Reading location - IP/workstation name: [email or web address]
[2019-09-24 15:47] LABS: ALBUMIN 3.9 g/dL (3.5-5.0); ALKALINE PHOSPHATASE 146 U/L (38-126); ANION GAP 6 (5-19); ASPARTATE AMINO TRANSFERASE 44 U/L (14-36); BILIRUBIN,DIRECT 0.1 mg/dL (0.0-0.4); BILIRUBIN,TOTAL 0.3 mg/dL (0.2-1.3); BLOOD UREA NITROGEN 11 mg/dL (7-20); CALCIUM 9.3 mg/dL (8.4-10.2); CARBON DIOXIDE 31 mmol/L (22-30); CHLORIDE 105 mmol/L (98-107); CREATINE KINASE 117 U/L (30-135); GLUCOSE 120 mg/dL (75-110); POTASSIUM 4.1 mmol/L (3.6-5.0); TOTAL PROTEIN 6.9 g/dL (6.3-8.2)
[2019-09-24 15:59] LABS: ABSOLUTE LYMPHOCYTES# (MANUAL) 0.1 10^3/uL (0.5-4.7); ABSOLUTE MONOCYTES # (MANUAL) 0.3 10^3/uL (0.1-1.4); BASOPHILS % (MANUAL) 0 % (0-2); CREATINE KINASE MB 1.13 ng/mL (<4.55); EOSINOPHILS % (MANUAL) 1 % (0-6); LYMPHOCYTES % (MANUAL) 4 % (13-45); MONOCYTES % (MANUAL) 12 % (3-13); SEGMENTED NEUTROPHILS % (MAN) 83 % (42-78); TOTAL CELLS COUNTED 100; TROPONIN I < 0.012 ng/mL
[2019-09-24 16:01] LABS: PLATELET COMMENT ADEQUATE
[2019-09-24] MEDS ORDERED: ASPIRIN 81 MG TABLET, CHEWABLE PO ONE (16:20)
[2019-09-24] MEDS ORDERED: ONDANSETRON HCL INJ/PF 4 MG/2 ML SDV IV PRN (18:00)
--- NOTE | 2019-09-24 18:27 | PDOC H&P ---
History of Present Illness Admission Date/PCP: 09/24/19 16:37 JAQUAN GARY Patient complains of: Chest pain and vertigo History of Present Illness: CONCEPCION ANN is a 48 year old female with a history of hypertension, hyperlipidemia, multiple sclerosis diagnosed in 2004 [typically manifest as paresthesias in the legs arms and face], trigeminal neuralgia, presents with complaints of chest pain which started this morning while patient was walking. Chest pain was left-sided throbbing in nature and a 6 out of 10 on the pain scale. The patient's pain lasted for about 1 hour then resolved spontaneously. Patient endorsed some diarrhea diaphoresis at that time. Patient denies any prior history of chest pains when walking or when exerting oneself. Patient denies any improvement of the chest pain with rest and no aggravation with continued walking. Patient also complains of vertigo that started last night. At that time patient was laying down. Patient endorses that the vertigo gets worse when she turns her head to the right. Admits to some nausea. Vertigo makes it a little difficult to walk. Patient denies any motor weaknesses or p aresthesias. Past Medical History Cardiac Medical History: Reports: Hyperlipidema, Hypertension Neurological Medical History: Reports: Multiple Sclerosis, Other - Trigeminal neuralgia Past Surgical History Past Surgical History: Reports: Orthopedic Surgery - RT ankle with plates placed Social History Information Source: Patient Lives with: Family Smoking Status: Never Smoker Electronic Cigarette use?: No Frequency of Alcohol Use: None Hx Recreational Drug Use: No Drugs: None - Advance Directive Resuscitation Status: Full Code Family History Family History: Reviewed & Not Pertinent Parental Family History Reviewed: Yes Children Family History Reviewed: NA Sibling(s) Family History Reviewed.: NA Medication/Allergy Home Medications: Alprazolam 1 mg PO Q8HP PRN 09/24/19 Amlodipine Besylate [Norvasc 5 mg Tablet] 5 mg PO DAILY 09/24/19 Atorvastatin Calcium [Lipitor 40 mg Tablet] 40 mg PO QHS 09/24/19 Baclofen [Baclofen 10 mg Tablet] 10 mg PO Q8HP PRN 09/24/19 Duloxetine HCl [Cymbalta 30 mg Capsule.dr] 60 mg PO Q12 09/24/19 Gabapentin 600 mg PO QHS 09/24/19 Oxcarbazepine 300 mg PO Q12 MDD TAKE WITH 150MG 09/24/19 Oxcarbazepine [Trileptal 150 mg Tablet] 150 mg PO Q12 MDD TAKE WITH 300MG Oxycodone HCl/Acetaminophen [Oxycodone-Acetaminophen 10-325] 1 each PO Q6HP PRN 09/24/19 Phentermine HCl [Adipex-P] 37.5 mg PO DAILY 09/24/19 Allergies/Adverse Reactions: No Known Allergies Allergy (Verified 06/03/18 20:56) Review of Systems Constitutional: ABSENT: anorexia, fever(s), weakness Eyes: ABSENT: visual disturbances Ears: ABSENT: hearing changes Cardiovascular: ABSENT: dyspnea on exertion, edema, orthropnea, palpitations Respiratory: ABSENT: cough Gastrointestinal: ABSENT: abdominal pain Genitourinary: ABSENT: dysuria Musculoskeletal: ABSENT: muscle weakness Integumentary: PRESENT: as per HPI Neurological: PRESENT: abnormal gait, dizziness, vertigo. ABSENT: abnormal mov ements, abnormal speech, confusion, focal weakness, numbness, paresthesias, tingling Psychiatric: ABSENT: anxiety, depression, homidical ideation, suicidal ideation Endocrine: ABSENT: cold intolerance, heat intolerance, polydipsia, polyuria Hematologic/Lymphatic: ABSENT: easy bruising Physical Exam Vital Signs: Temp Pulse Resp BP Pulse Ox 97.8 F 17 142/88 H 100 09/24/19 15:00 09/24/19 17:29 09/24/19 17:29 09/24/19 15:01 Intake & Output 09/23/19 09/24/19 09/25/19 06:59 06:59 06:59 Weight 105.3 kg General appearance: PRESENT: mild distress - When patient turns book comfortable at laying flat Head exam: PRESENT: atraumatic, normocephalic Eye exam: PRESENT: EOMI, other - Mild horizontal nystagmus noted during Bude- Hallpike maneuver when turning to the right Ear exam: PRESENT: normal external ear exam Mouth exam: PRESENT: moist Neck exam: ABSENT: carotid bruit, JVD, tracheal deviation Respiratory exam: PRESENT: clear to auscultation abbie Cardiovascular exam: PRESENT: RRR, +S1, +S2. ABSENT: bradycardia, diastolic murmur, gallop, systolic murmur, tachycardia Pulses: PRESENT: normal dorsalis pedis pul Vascular exam: ABSENT: pallor GI/Abdominal exam: PRESENT: normal bowel sounds, soft. ABSENT: tenderness Rectal exam: PRESENT: deferred Gentrourinary exam: ABSENT: ecchymosis Extremities exam: ABSENT: calf tenderness, joint swelling, pedal edema Musculoskeletal exam: PRESENT: full ROM Neurological exam: PRESENT: alert, awake, oriented to person, oriented to place, oriented to time, oriented to situation, CN II-XII grossly intact, other - Normal hrmmhv-mz-weqv test and rapid alternative hand movement in both upper extremities. No evidence of dysdiadochokinesia. No improvement of symptoms with Sharad's maneuver. 5 out of 5 strength in all 4 extremities without drift.. ABSENT: ataxia, motor sensory deficit Psychiatric exam: PRESENT: appropriate affect, normal mood. ABSENT: homicidal ideation, suicidal ideation Skin exam: PRESENT: dry, intact, warm. ABSENT: cyanosis, rash Results Laboratory Results: 09/24/19 15:09 09/24/19 15:09 09/24/19 09/24/19 15:09 15:09 WBC 2.4 L RBC 4.88 Hgb 14.0 Hct 42.5 MCV 87 MCH 28.7 MCHC 32.9 RDW 13.3 Plt Count 167 Seg Neutrophils % Not Reportable Sodium 142.1 Potassium 4.1 Chloride 105 Carbon Dioxide 31 H Anion Gap 6 BUN 11 Creatinine 0.67 Est GFR ( Amer) > 60 Glucose 120 H Calcium 9.3 Total Bilirubin 0.3 AST 44 H Alkaline Phosphatase 146 H Total Protein 6.9 Albumin 3.9 09/24/19 09/24/19 15:09 15:09 Creatine Kinase 117 CK-MB (CK-2) 1.13 Troponin I < 0.012 Impressions: Chest X-Ray 09/24/19 14:54 IMPRESSION: Low volume AP portable examination without acute abnormality of the lungs. No focal airspace opacity. Assessment and Plan - Diagnosis (1) Acute chest pain Is this a current diagnosis for this admission?: Yes Plan: Heart score of 4 EKG showing no significant ST or T wave abnormalities and no pathological Q waves Chest x-ray is normal Initial troponin negative. We will trend 2 more. Chest pain currently resolved but if it recurs we will check response to nitroglycerin (2) BPPV (benign paroxysmal positional vertigo) Qualifiers: Laterality: right Qualified Code(s): H81.11 - Benign paroxysmal vertigo, right ear Is this a current diagnosis for this admission?: Yes Plan: Positive Bude-Hallpike maneuver and no focal neurological deficit Not much improvement with Sharad's maneuver Patient will benefit from vestibular therapy by PT PRN meclizine PRN Zofran (3) Hypertension Is this a current diagnosis for this admission?: Yes Plan: Continue home regimen (4) Leukopenia Qualifiers: Leukopenia type: other Qualified Code(s): D72.818 - Other decreased white blood cell count Is this a current diagnosis for this admission?: Yes Plan: We will monitor CBC - Time Time Spent with patient: 35 or more minutes
[2019-09-24] MEDS ORDERED: BACLOFEN 10 MG TABLET PO PRN (18:29)
[2019-09-24] MEDS: MECLIZINE HCL 25 MG TABLET PO PRN (20:13)
[2019-09-24] MEDS: OXYCODONE-ACETAMINOPHEN 5-325 MG TABLET PO PRN (20:13)
--- NOTE | 2019-09-24 21:30 | EKG REPORT ---
SEVERITY:- BORDERLINE ECG - SINUS RHYTHM LVH BY VOLTAGE BORDERLINE T ABNORMALITIES, INFERIOR LEADS : Confirmed by: Smitha Wheeler MD 24-Sep-2019 21:29:51
[2019-09-24] MEDS: DULOXETINE HCL 30 MG CAPSULE.DR PO SCH (21:44)
[2019-09-24] MEDS: OXCARBAZEPINE 150 MG TABLET PO SCH (21:45)
[2019-09-24] MEDS: GABAPENTIN 300 MG CAPSULE PO SCH (21:45)
[2019-09-25] MEDS: MECLIZINE HCL 25 MG TABLET PO PRN (05:13)
[2019-09-25] MEDS: DULOXETINE HCL 30 MG CAPSULE.DR PO SCH ×2 (10:31→21:12)
[2019-09-25] MEDS: POLYETHYLENE GLYCOL 3350 POWDER 17 GM/1 PACKET PO SCH (10:31)
[2019-09-25] MEDS: AMLODIPINE BESYLATE 5 MG TABLET PO SCH (10:31)
[2019-09-25] MEDS: OXYCODONE-ACETAMINOPHEN 5-325 MG TABLET PO PRN (10:31)
[2019-09-25] MEDS: ENOXAPARIN SODIUM INJ 40 MG/0.4 ML DISP.SYRIN SUBCUT SCH (10:35)
[2019-09-25] MEDS: OXCARBAZEPINE 150 MG TABLET PO SCH ×2 (10:37→21:12)
--- NOTE | 2019-09-25 13:10 | PDOC PROGRESS REPORT ---
Subjective Progress Note for:: 09/25/19 Subjective:: Patient states that dizziness has improved and vertigo is less. Was able to ambulate to the bathroom but with some difficulty but better than before. Still currently chest pain-free. Reason For Visit: VERTIGO,CHEST PAIN Physical Exam Vital Signs: Temp Pulse Resp BP Pulse Ox 97.6 F 73 18 145/96 H 97 09/25/19 07:46 09/25/19 07:46 09/25/19 07:46 09/25/19 07:46 09/25/19 07:46 Intake & Output 09/24/19 09/25/19 09/26/19 06:59 06:59 06:59 Intake Total 1700 Balance 1700 Weight 101.2 kg General appearance: PRESENT: no acute distress, cooperative Eye exam: PRESENT: conjunctiva pink Neck exam: ABSENT: JVD Respiratory exam: PRESENT: clear to auscultation abbie. ABSENT: chest wall tenderness Cardiovascular exam: PRESENT: RRR, +S1, +S2 Extremities exam: ABSENT: pedal edema Neurological exam: PRESENT: alert, awake, oriented to person, oriented to place, oriented to time, oriented to situation Results Laboratory Results: 09/24/19 15:09 09/24/19 15:09 09/24/19 09/24/19 15:09 15:09 WBC 2.4 L RBC 4.88 Hgb 14.0 Hct 42.5 MCV 87 MCH 28.7 MCHC 32.9 RDW 13.3 Plt Count 167 Seg Neutrophils % Not Reportable Sodium 142.1 Potassium 4.1 Chloride 105 Carbon Dioxide 31 H Anion Gap 6 BUN 11 Creatinine 0.67 Est GFR ( Amer) > 60 Glucose 120 H Calcium 9.3 Total Bilirubin 0.3 AST 44 H Alkaline Phosphatase 146 H Total Protein 6.9 Albumin 3.9 09/24/19 09/24/19 09/24/19 15:09 15:09 18:23 Creatine Kinase 117 CK-MB (CK-2) 1.13 Troponin I < 0.012 Cancelled 09/24/19 21:57 Creatine Kinase CK-MB (CK-2) Troponin I < 0.012 Impressions: Chest X-Ray 09/24/19 14:54 IMPRESSION: Low volume AP portable examination without acute abnormality of the lungs. No focal airspace opacity. Assessment and Plan - Diagnosis (1) BPPV (benign paroxysmal positional vertigo) Qualifiers: Laterality: right Qualified Code(s): H81.11 - Benign paroxysmal vertigo, right ear Is this a current diagnosis for this admission?: Yes Plan: Positive [place]-Hallpike maneuver and no focal neurological deficit Continue PT for vestibular therapy --based on today's exam PT recommending SNF but will keep till tomorrow to see if improvement in vertigo for potential discharge home PRN meclizine PRN Zofran (2) Acute chest pain Is this a current diagnosis for this admission?: Yes Plan: Resolved heart score of 4 EKG showing no significant ST or T wave abnormalities and no pathological Q waves Chest x-ray is normal and troponins negative (3) Hypertension Is this a current diagnosis for this admission?: Yes Plan: Continue home regimen (4) Leukopenia Qualifiers: Leukopenia type: other Qualified Code(s): D72.818 - Other decreased white blood cell count Is this a current diagnosis for this admission?: Yes Plan: We will monitor CBC - Time Time Spent with patient: 15-24 minutes
--- NOTE | 2019-09-25 14:44 | EKG REPORT ---
SEVERITY:- NORMAL ECG - SINUS RHYTHM : Confirmed by: Smitha Wheeler MD 25-Sep-2019 14:43:28
[2019-09-25] MEDS: GABAPENTIN 300 MG CAPSULE PO SCH (21:11)
[2019-09-26 00:03] VITALS: BP 130/69
[2019-09-26] MEDS: POLYETHYLENE GLYCOL 3350 POWDER 17 GM/1 PACKET PO SCH (10:34)
[2019-09-26] MEDS: DULOXETINE HCL 30 MG CAPSULE.DR PO SCH (10:35)
[2019-09-26] MEDS: ENOXAPARIN SODIUM INJ 40 MG/0.4 ML DISP.SYRIN SUBCUT SCH (10:35)
[2019-09-26] MEDS: AMLODIPINE BESYLATE 5 MG TABLET PO SCH (10:35)
[2019-09-26] MEDS: OXCARBAZEPINE 150 MG TABLET PO SCH (10:39)
--- NOTE | 2019-09-26 11:34 | PDOC DISCHARGE SUMMARY ---
Impression - Admit/DC Date/PCP Admission Date/Primary Care Provider: 09/24/19 16:37 JAQUAN GARY Discharge Date: 09/26/19 - Discharge Diagnosis (1) BPPV (benign paroxysmal positional vertigo) Is this a current diagnosis for this admission?: Yes (2) Acute chest pain Is this a current diagnosis for this admission?: Yes (3) Hypertension Is this a current diagnosis for this admission?: Yes (4) Leukopenia Is this a current diagnosis for this admission?: Yes - Assessment Summary: Patient is a 48-year-old female with a history of hypertension, hyperlipidemia, multiple sclerosis, trigeminal neuralgia, who presented with complaints of left- sided chest pain and vertigo. Patient's chest pain had resolved on the time of my initial encounter. Troponin measurements were negative. EKG showed no signs of new ischemic disease. Patient's was positive for [place]-Hallpike maneuver. She was diagnosed with BPPV and started on vestibular therapy as well as meclizine as needed. Patient's vertigo since improved significantly and patient is said to be discharged home in stable conditions. Patient will be set up with home physical therapy for vestibular therapy. - Additional Information Resuscitation Status: Full Code Discharge Diet: As Tolerated Discharge Activity: Activity As Tolerated Referrals: DA DUMONT FNP [Primary Care Provider] - (Within 1 week) Prescriptions: Meclizine HCl [Antivert 25 mg Tablet] 25 mg PO Q8HP PRN #14 tablet PRN Reason: Home Medications: Alprazolam 1 mg PO Q8HP PRN 09/24/19 Amlodipine Besylate [Norvasc 5 mg Tablet] 5 mg PO DAILY 09/24/19 Atorvastatin Calcium [Lipitor 40 mg Tablet] 40 mg PO QHS 09/24/19 Baclofen [Baclofen 10 mg Tablet] 10 mg PO Q8HP PRN 09/24/19 Duloxetine HCl [Cymbalta 30 mg Capsule.dr] 60 mg PO Q12 09/24/19 Gabapentin 600 mg PO QHS 09/24/19 Oxcarbazepine 300 mg PO Q12 MDD TAKE WITH 150MG 09/24/19 Oxcarbazepine [Trileptal 150 mg Tablet] 150 mg PO Q12 MDD TAKE WITH 300MG 09/24/19 Oxycodone HCl/Acetaminophen [Oxycodone-Acetaminophen 10-325] 1 each PO Q6HP PRN 09/24/19 Phentermine HCl [Adipex-P] 37.5 mg PO DAILY 09/24/19 Cholecalciferol (Vitamin D3) [Vitamin D3 1000 Unit Tablet] 1,000 unit PO DAILY 09/25/19 Meclizine HCl [Antivert 25 mg Tablet] 25 mg PO Q8HP PRN #14 tablet 09/25/19 History of Present Illiness History of Present Illness: CONCEPCION ANN is a 48 year old female with a history of hypertension, hyperlipidemia, multiple sclerosis diagnosed in 2004 [typically manifest as paresthesias in the legs arms and face], trigeminal neuralgia, presents with complaints of chest pain which started this morning while patient was walking. Chest pain was left-sided throbbing in nature and a 6 out of 10 on the pain scale. The patient's pain lasted for about 1 hour then resolved spontaneously. Patient endorsed some diarrhea diaphoresis at that time. Patient denies any prior history of chest pains when walking or when exerting oneself. Patient denies any improvement of the chest pain with rest and no aggravation with continued walking. Patient also complains of vertigo that started last night. At that time patient was laying down. Patient endorses that the vertigo gets worse when she turns her head to the right. Admits to some nausea. Vertigo makes it a little difficult to walk. Patient denies any motor weaknesses or paresthesias. Physical Exam Vital Signs: Temp Pulse Resp BP Pulse Ox 98.1 F 79 17 130/69 H 96 09/26/19 00:00 09/26/19 07:00 09/26/19 00:00 09/26/19 00:00 09/26/19 00:00 Intake & Output 09/25/19 09/26/19 09/27/19 06:59 06:59 06:59 Intake Total 1700 872 Balance 1700 872 Weight 101.2 kg 101.4 kg General appearance: PRESENT: no acute distress, cooperative Head exam: PRESENT: atraumatic Eye exam: PRESENT: EOMI. ABSENT: nystagmus Mouth exam: PRESENT: moist Neck exam: ABSENT: JVD Respiratory exam: PRESENT: clear to auscultation abbie. ABSENT: crackles, wheezes Cardiovascular exam: PRESENT: RRR, +S1, +S2 GI/Abdominal exam: PRESENT: normal bowel sounds, soft. ABSENT: tenderness Rectal exam: PRESENT: deferred Extremities exam: ABSENT: pedal edema Neurological exam: PRESENT: alert, awake, oriented to person, oriented to place, oriented to time, oriented to situation, CN II-XII grossly intact, motor sensory deficit. ABSENT: ataxia Psychiatric exam: PRESENT: normal mood Results Laboratory Results: WBC 2.4 10^3/uL (4.0-10.5) L 09/24/19 15:09 RBC 4.88 10^6/uL (3.72-5.28) 09/24/19 15:09 Hgb 14.0 g/dL (12.0-15.5) 09/24/19 15:09 Hct 42.5 % (36.0-47.0) 09/24/19 15:09 MCV 87 fl (80-97) 09/24/19 15:09 MCH 28.7 pg (27.0-33.4) 09/24/19 15:09 MCHC 32.9 g/dL (32.0-36.0) 09/24/19 15:09 RDW 13.3 % (11.5-14.0) 09/24/19 15:09 Plt Count 167 10^3/uL (150-450) 09/24/19 15:09 Lymph % (Auto) Not Reportable 09/24/19 15:09 [place] % (Auto) Not Reportable 09/24/19 15:09 Eos % (Auto) Not Reportable 09/24/19 15:09 Baso % (Auto) Not Reportable 09/24/19 15:09 Absolute Neuts (auto) Not Reportable 09/24/19 15:09 Absolute Lymphs (auto) Not Reportable 09/24/19 15:09 Absolute Monos (auto) Not Reportable 09/24/19 15:09 Absolute Eos (auto) Not Reportable 09/24/19 15:09 Absolute Basos (auto) Not Reportable 09/24/19 15:09 Total Counted 100 09/24/19 15:09 Seg Neutrophils % Not Reportable 09/24/19 15:09 Seg Neuts % (Manual) 83 % (42-78) H 09/24/19 15:09 Lymphocytes % (Manual) 4 % (13-45) L 09/24/19 15:09 Monocytes % (Manual) 12 % (3-13) 09/24/19 15:09 Eosinophils % (Manual) 1 % (0-6) 09/24/19 15:09 Basophils % (Manual) 0 % (0-2) 09/24/19 15:09 Abs Neuts (Manual) 2.0 10^3/uL (1.7-8.2) 09/24/19 15:09 Abs Lymphs (Manual) 0.1 10^3/uL (0.5-4.7) L 09/24/19 15:09 Abs Monocytes (Manual) 0.3 10^3/uL (0.1-1.4) 09/24/19 15:09 Absolute Eos (Manual) 0.0 10^3/uL (0.0-0.6) 09/24/19 15:09 Abs Basophils (Manual) 0.0 10^3/uL (0.0-0.2) 09/24/19 15:09 Platelet Comment ADEQUATE 09/24/19 15:09 Sodium 142.1 mmol/L (137-145) 09/24/19 15:09 Potassium 4.1 mmol/L (3.6-5.0) 09/24/19 15:09 Chloride 105 mmol/L (98-107) 09/24/19 15:09 Carbon Dioxide 31 mmol/L (22-30) H 09/24/19 15:09 Anion Gap 6 (5-19) 09/24/19 15:09 BUN 11 mg/dL (7-20) 09/24/19 15:09 Creatinine 0.67 mg/dL (0.52-1.25) 09/24/19 15:09 Est GFR ( Amer) > 60 (>60) 09/24/19 15:09 Est GFR (MDRD) Non-Af > 60 (>60) 09/24/19 15:09 Glucose 120 mg/dL (75-110) H 09/24/19 15:09 Calcium 9.3 mg/dL (8.4-10.2) 09/24/19 15:09 Total Bilirubin 0.3 mg/dL (0.2-1.3) 09/24/19 15:09 Direct Bilirubin 0.1 mg/dL (0.0-0.4) 09/24/19 15:09 Neonat Total Bilirubin Not Reportable 09/24/19 15:09 Neonat Direct Bilirubin Not Reportable 09/24/19 15:09 Neonat Indirect Bili Not Reportable 09/24/19 15:09 AST 44 U/L (14-36) H 09/24/19 15:09 ALT 53 U/L (<35) 09/24/19 15:09 Alkaline Phosphatase 146 U/L (38-126) H 09/24/19 15:09 Creatine Kinase 117 U/L (30-135) 09/24/19 15:09 CK-MB (CK-2) 1.13 ng/mL (<4.55) 09/24/19 15:09 Troponin I < 0.012 ng/mL 09/24/19 21:57 Total Protein 6.9 g/dL (6.3-8.2) 09/24/19 15:09 Albumin 3.9 g/dL (3.5-5.0) 09/24/19 15:09 09/24/19 09/24/19 09/24/19 15:09 18:23 21:57 CK-MB (CK-2) 1.13 Troponin I < 0.012 Cancelled < 0.012 Impressions: Chest X-Ray 09/24/19 14:54 IMPRESSION: Low volume AP portable examination without acute abnormality of the lungs. No focal airspace opacity. Stroke Is this a Stroke Patient?: No Acute Heart Failure - Is this a Heart Failure Patient?: No
== END 2019-09-26 14:00 | disposition home health service (06) ==
LOC: ER 14:52 → EH 16:37 → 4S 19:18
PROVIDERS: ADMIT Internal Medicine; ATTEND Family Medicine
DX: H81.11 Benign paroxysmal vertigo, right ear (principal); R07.89 Other chest pain; I10 Essential (primary) hypertension; D72.818 Other decreased white blood cell count; G35 Multiple sclerosis; E78.5 Hyperlipidemia, unspecified; G50.0 Trigeminal neuralgia; R19.7 Diarrhea, unspecified; R61 Generalized hyperhidrosis; Z79.899 Other long term (current) drug therapy
CPT/HCPCS: 93005 ×2; 99285; 96360; 96361; 36415; 82553; 82550; 85025; 80053; 84484; 71045; 93010 ×2; 97163; G0378 ×4; A9270 ×17; J1650 ×2; J3490 ×2; J7030

== ENCOUNTER 2020-02-26 20:14 | Emergency (ER) | payer MEDICARE ==
--- NOTE | 2020-02-26 21:49 | ER Document Report ---
ED General - General Chief Complaint: Fall Stated Complaint: FALL/RIGHT SIDE PAIN Time Seen by Provider: 02/26/20 20:42 Primary Care Provider: DA DUMONT FNP [Primary Care Provider] - Follow up as needed TRAVEL OUTSIDE OF THE [place] IN LAST 30 DAYS: No - HPI Notes: Patient is a 49-year-old female who presented to the emergency department for evaluation after a fall. She was on the second step of her porch, walking past her son, when she believes they collided, causing her to fall. She did hit her head on the concrete. She denies loss of consciousness. She states she has been nauseated, dizzy, with headache since then. Pain is worsened by bright light. No vomiting. She denies any difficulty speaking or swallowing. She is moving her arms and legs without difficulty. She denies any chest pain or shortness of breath. She is not on blood thinners. She also complains of some pain in her neck. No numbness or tingling noted. - Related Data Allergies/Adverse Reactions: No Known Allergies Allergy (Verified 06/03/18 20:56) Past Medical History - General Information source: Patient - Social History Smoking Status: Never Smoker Family History: Reviewed & Not Pertinent Patient has suicidal ideation: No Patient has homicidal ideation: No - Past Medical History Cardiac Medical History: Reports: Hx Hypercholesterolemia, Hx Hypertension Neurological Medical History: Reports: Other - Multiple sclerosis Past Surgical History: Reports: Hx Orthopedic Surgery - RT ankle with plates placed Review of Systems - Review of Systems Musculoskeletal: See HPI Neurological/Psychological: See HPI Physical Exam - Vital signs Vitals: Temp Pulse Resp BP Pulse Ox 97.9 F 81 18 148/98 H 96 02/26/20 20:20 02/26/20 20:20 02/26/20 20:20 02/26/20 20:20 02/26/20 20:20 - Notes Notes: Vital signs reviewed, please refer to chart. Head is normocephalic. She has a right parietal hematoma without skin break. Pupils equal round, reactive to light. Examination of the spine is no midline tenderness or step-off. No paraspinal musculature tenderness is appreciated. No paraspinal muscle. Heart is regular rate and rhythm. Lungs are clear to auscultation bilaterally. Abdomen is soft, nontender, normoactive bowel sounds throughout. Extremities without cyanosis, clubbing. Posterior calves are nontender. Peripheral pulses are equal. Skin is warm and dry. She has a superficial abrasion noted over the left elbow and the left lateral thigh examination of the left lower extremity yields no obvious deformity. She has tenderness over the left greater trochanter. Passive range of motion does elicit some pain but is possible. She is also tender over the iliotibial band midway down the thigh. Patient is awake, alert, oriented x3. Cranial nerves II - XII are grossly intact without focal neurological deficits. Strength is plus 5 out of 5 bilateral upper and lower extremities. Sensation is intact. Reflexes symmetrical. Intact [id number], rapid alternating movements, [id number]. Course - Re-evaluation Re-evalutation: 02/26/20 21:52 Patient presents to the emergency department for evaluation. She had CT scan of the head and neck, x-rays of the left hip and femur ordered. Patient is here by herself. Will defer any pain medication at this time. Patient is stable, we will continue to monitor. 02/26/20 23:00 Imaging is unremarkable. Patient treated with Tylenol, ibuprofen, Robaxin. We will send her with a prescription for Robaxin, she is told to take [id number] pain relievers as necessary. She requests a work excuse, this is given as well. She is to follow-up with primary care this week, return to the ED with worsening. - Vital Signs Vital signs: Temp Pulse Resp BP Pulse Ox 97.9 F 81 18 148/98 H 96 02/26/20 20:20 02/26/20 20:20 02/26/20 20:20 02/26/20 20:20 02/26/20 20:20 - Diagnostic Test Radiology reviewed: Reports reviewed Radiology results interpreted by me: 02/26/20 23:[address] 02/26/20 21:46 IMPRESSION: 1. No acute intracranial hemorrhage. 2. No acute fracture or subluxation of the cervical spine. Head CT 02/26/20 21:46 IMPRESSION: 1. No acute intracranial hemorrhage. 2. No acute fracture or subluxation of the cervical spine. Femur X-Ray 02/26/20 21:50 IMPRESSION: No evidence of acute displaced fracture of the femur. Hip X-Ray 02/26/20 21:50 IMPRESSION: No evidence of acute displaced fracture of the hip. Discharge - Discharge Clinical Impression: Closed head injury with concussion Qualifiers: Encounter type: initial encounter Loss of consciousness presence/duration: without LOC Qualified Code(s): S06.0X0A - Concussion without loss of consciousness, initial encounter Cervical strain Qualifiers: Encounter type: initial encounter Qualified Code(s): S16.1XXA - Strain of muscle, fascia and tendon at neck level, initial encounter Condition: Stable Disposition: HOME, SELF-CARE Instructions: Head Injury Precautions ([facility]), Neck Injury (Cervical Strain) ([facility]) Additional Instructions: Tylenol or ibuprofen as needed for head pain. Use Flexeril as needed for neck pain and strain. Please watch for dizziness, drowsiness with this medication. Follow-up with your primary care provider this week. Return to the emergency department with worsening or new concerning symptoms of any sort. Forms: Return to Work Referrals: DA DUMONT FNP [Primary Care Provider] - Follow up as needed
--- NOTE | 2020-02-26 22:45 | RADIOLOGY REPORT (SQ) ---
CT BRAIN AND CERVICAL SPINE EXAM DATE: 02/26/2020 9:46 PM CDT HISTORY: Trauma. COMPARISON: None. TECHNIQUE: CT scan of the brain and cervical spine without IV contrast. This exam was performed according to our departmental dose-optimization program, which includes automated exposure control, adjustment of the mA and/or kV according to patient size and/or use of iterative reconstruction technique. FINDINGS: BRAIN: There are scattered areas of hypoattenuation within the periventricular white matter, which likely represent chronic microvascular ischemia. No evidence of acute infarction, intracranial hemorrhage, extra-axial fluid collection, or midline shift. No air-fluid levels are seen in the paranasal sinuses to suggest acute sinusitis. No depressed skull fracture. CERVICAL SPINE: No acute cervical fracture or prevertebral soft tissue swelling. There is straightening of the normal cervical lordosis, which may be due to cervical collar, muscle spasm, or patient positioning. The facet joints and disc spaces are preserved. No advanced canal stenosis is identified. IMPRESSION: 1. No acute intracranial hemorrhage. 2. No acute fracture or subluxation of the cervical spine.
--- NOTE | 2020-02-26 22:50 | RADIOLOGY REPORT (SQ) ---
CLINICAL INDICATION: fall. Pain. TECHNIQUE: 2 view(s) were obtained of the left hip. COMPARISON: None. FINDINGS: No acute displaced fracture is identified of the hip. Alignment appears anatomic. Osteoarthritis. Postsurgical change from tubal ligation. IMPRESSION: No evidence of acute displaced fracture of the hip.
--- NOTE | 2020-02-26 22:50 | RADIOLOGY REPORT (SQ) ---
CLINICAL INDICATION: injury. Pain. TECHNIQUE: 3 view(s) were obtained of the left femur. COMPARISON: None. FINDINGS: No acute displaced fracture is identified of the femur. Alignment appears anatomic. Osteoarthritis. Surrounding soft tissues are unremarkable. If hip or knee are clinically in suspicion, then dedicated radiography is advised. IMPRESSION: No evidence of acute displaced fracture of the femur.
[2020-02-26] MEDS ORDERED: ACETAMINOPHEN 325 MG TABLET PO ONE (22:59)
[2020-02-26] MEDS ORDERED: IBUPROFEN 800 MG TABLET PO ONE (22:59)
[2020-02-26] MEDS ORDERED: METHOCARBAMOL 750 MG TABLET PO ONE (23:00)
[2020-02-26 23:24] VITALS: BP 153/96
== END 2020-02-26 23:20 | disposition home or self-care (01) ==
LOC: ER 20:14
DX: S06.0X0A Concussion without loss of consciousness, initial encounter (principal); S16.1XXA Strain of muscle, fascia and tendon at neck level, initial encounter; S00.03XA Contusion of scalp, initial encounter; S50.312A Abrasion of left elbow, initial encounter; S70.312A Abrasion, left thigh, initial encounter; W10.8XXA Fall (on) (from) other stairs and steps, initial encounter; Y92.008 Other place in unspecified non-institutional (private) residence as the place of occurrence of the external cause; R51 Headache; R42 Dizziness and giddiness; R11.0 Nausea; I10 Essential (primary) hypertension
CPT/HCPCS: 99284; 73552; 73502; 70450; 72125; A9270 ×3; J3490